=== PATIENT | male | born 1935 | race Caucasian/White ===

== ENCOUNTER 2025-06-12 13:31 | Emergency (ER) | payer MEDICARE, OTHER ==
[~2025-06-12] VITALS: Ht 175.3 cm; Wt 74.4 kg
[2025-06-12] MEDS: IV NS 0.9% 500 ML BAG IV ONE (14:04)
[2025-06-12 14:24] LABS: PLATELET COUNT (AUTO) 268 K/uL (150-450); RED BLOOD CELL COUNT(AUTO) 4.64 MIL/uL (4.5-6.0); RED CELL DISTRIBUTION WIDTH 15.8 % (11.5-15.0); WHITE BLOOD COUNT (AUTO) 6.9 K/uL (4.3-11.0)
[2025-06-12 14:26] LABS: CALCIUM, SERUM 8.7 mg/dL (8.5-10.1); CREATININE 1.7 mg/dL (0.6-1.3); SODIUM SERUM 139 mmol/L (136-145); UREA NITROGEN, BLOOD 22 mg/dL (7-18)
[2025-06-12 14:32] LABS: ASPARTATE AMINOTRANSFERASE 12 U/L (15-37); INR 1.0 (0.91-1.10); TOTAL PROTEIN, SERUM 7.7 g/dL (6.4-8.2)
[2025-06-12 17:02] VITALS: BP 132/78; TEMP 98.3; O2SAT 97
== END 2025-06-12 17:03 | disposition home or self-care (01) ==
LOC: ER 13:36
DX: G45.9 Transient cerebral ischemic attack, unspecified (principal); F03.90 Unspecified dementia, unspecified severity, without behavioral disturbance, psychotic disturbance, mood disturbance, and anxiety; R07.9 Chest pain, unspecified
CPT/HCPCS: 99285; 70450; 71045; 93005; 85025; 80048; 80076; 36415; 84443; 84484 ×2; 85730; J7040

== ENCOUNTER 2025-10-04 15:53 | Inpatient (IN) | payer MEDICARE, OTHER ==
[2025-10-04] VITALS (11 sets, daily range): BP systolic 81–122; BP diastolic 56–89; TEMP 97.7; O2SAT 92–100
[~2025-10-04] VITALS: Ht 162.6 cm; Wt 76.2 kg
[2025-10-04] MEDS ORDERED: OLANZAPINE 10 MG VIAL IM ONE (16:23)
[2025-10-04] MEDS: IPRATROPIUM NEB FS 0.5 MG/2.5 ML AMPUL.NEB NEB ONE (16:30)
[2025-10-04] MEDS: ALBUTEROL FS 2.5 MG/3 ML VIAL.NEB NEB ONE (16:30)
[2025-10-04 16:33] LABS: PLATELET COUNT (AUTO) 302 K/uL (150-450); RED BLOOD CELL COUNT(AUTO) 4.54 MIL/uL (4.5-6.0); RED CELL DISTRIBUTION WIDTH 17.0 % (11.5-15.0); WHITE BLOOD COUNT (AUTO) 10.0 K/uL (4.3-11.0)
[2025-10-04] MEDS: OLANZAPINE 10 MG VIAL IM ONE (16:35)
[2025-10-04 16:43] LABS: CALCIUM, SERUM 8.7 mg/dL (8.5-10.1); CREATININE 1.7 mg/dL (0.6-1.3); SODIUM SERUM 135 mmol/L (136-145); UREA NITROGEN, BLOOD 30 mg/dL (7-18)
[2025-10-04 16:58] LABS: NT-PRO BNP 15802 pg/mL (0-125)
[2025-10-04] MEDS ORDERED: FUROSEMIDE 40 MG/4 ML VIAL ONE (17:17)
[2025-10-04] MEDS: FUROSEMIDE 40 MG/4 ML VIAL IV ONE (17:28)
[2025-10-04] MEDS: CEFTRIAXONE 1 G in IV D5W 50 ML IV ONE (17:29)
[2025-10-04] MEDS ORDERED: ALBUTEROL FS 2.5 MG/3 ML VIAL.NEB ONE (17:39)
[2025-10-04] MEDS ORDERED: IPRATROPIUM NEB FS 0.5 MG/2.5 ML AMPUL.NEB ONE (17:39)
[2025-10-04] MEDS: AZITHROMYCIN 500 MG in IV D5W 250 ML IV ONE (17:59)
[2025-10-04] MEDS ORDERED: MAG HYDROX/AL HYDROX/SIMETH 30 ML UDC PO PRN (18:30)
[2025-10-04] MEDS ORDERED: IPRATROPIUM NEB FS 0.5 MG/2.5 ML AMPUL.NEB NEB PRN (18:30)
[2025-10-04] MEDS ORDERED: ONDANSETRON HCL/PF 4 MG/2 ML VIAL IVP PRN (18:30)
[2025-10-04] MEDS ORDERED: MAGNESIUM HYDROXIDE 30 ML UDC PO PRN (18:30)
[2025-10-04] MEDS ORDERED: ALBUTEROL FS 2.5 MG/3 ML VIAL.NEB NEB PRN (18:30)
[2025-10-04] MEDS ORDERED: Z GUARD REMEDY 4 OZ OINT TP PRN (18:30)
[2025-10-04 19:09] LABS: ABG BASE EXCESS -9.3 mmol/L (-2.0-3.0); ABG OXYGEN SATURATION 95.1 % (94.0-98.0); ABG PCO2 56.2 mmHg (35.0-48.0); ABG PH 7.166 (7.350-7.450); ABG PO2 95.2 mmHg (83.0-108.0); ABG TOTAL HEMOGLOBIN 15.5 G/dL (13.5-17.5); SET RATE, BG 20.0; SITE, ABG RIGHT RADIAL
[2025-10-04] MEDS ORDERED: MEMA10TA PO (19:14)
[2025-10-04] MEDS: PANTOPRAZOLE 40 MG VIAL IV SCH (20:45)
[2025-10-04] MEDS: DOXYCYCLINE 100 MG in IV D5W 100 ML IV SCH (21:09)
[2025-10-04] MEDS: IV NS 0.9% 250 ML IV PRN (21:09)
[2025-10-04 21:30] LABS: ABG BASE EXCESS -4.8 mmol/L (-2.0-3.0); ABG OXYGEN SATURATION 94.0 % (94.0-98.0); ABG PCO2 35.4 mmHg (35.0-48.0); ABG PH 7.364 (7.350-7.450); ABG PO2 74.0 mmHg (83.0-108.0); ABG TOTAL HEMOGLOBIN 15.0 G/dL (13.5-17.5); SET RATE, BG 20.0; SITE, ABG LEFT RADIAL
[2025-10-04] MEDS: NOREPINEPHRINE 8 MG in IV NS 0.9% 242 ML IV PRN (21:42)
[2025-10-04] MEDS: NOREPINEPHRINE 8MG/250ML RTU 250 ML IV ONE (21:43)
[2025-10-05] VITALS (42 sets, daily range): BP systolic 82–139; BP diastolic 56–112; TEMP 97.8–98.4; O2SAT 87–100
[2025-10-05 04:31] LABS: PLATELET COUNT (AUTO) 244 K/uL (150-450); RED BLOOD CELL COUNT(AUTO) 4.25 MIL/uL (4.5-6.0); RED CELL DISTRIBUTION WIDTH 16.1 % (11.5-15.0); WHITE BLOOD COUNT (AUTO) 17.1 K/uL (4.3-11.0)
[2025-10-05 04:43] LABS: CALCIUM, SERUM 8.3 mg/dL (8.5-10.1); CREATININE 2.3 mg/dL (0.6-1.3); PHOSPHORUS 4.2 mg/dL (2.5-4.9); SODIUM SERUM 138.0 mmol/L (136-145); UREA NITROGEN, BLOOD 36.0 mg/dL (7-18)
[2025-10-05 04:45] LABS: LDL 108.0 mg/dL (0-99)
[2025-10-05] MEDS ORDERED: LORAZEPAM INJ 2 MG/ML VIAL IV PRN (08:00)
[2025-10-05] MEDS ORDERED: FUROSEMIDE 40 MG/4 ML VIAL IV SCH (09:00)
[2025-10-05] MEDS: BUMETANIDE INJ 8 MG in IV NS 0.9% 48 ML IV ONE (09:21)
[2025-10-05 14:52] LABS: ABG BASE EXCESS 3.1 mmol/L (-2.0-3.0); ABG OXYGEN SATURATION 88.9 % (94.0-98.0); ABG PCO2 37.5 mmHg (35.0-48.0); ABG PH 7.470 (7.350-7.450); ABG PO2 54.9 mmHg (83.0-108.0); ABG TOTAL HEMOGLOBIN 14.3 G/dL (13.5-17.5); FLOW, BLOOD GAS 6.00 L/min (0.00-30.00); FRACTIONATED INSPIRED OXYGEN 44.0 %; SITE, ABG LEFT RADIAL
[2025-10-05] MEDS: CEFTRIAXONE 1 G in IV D5W 50 ML IV SCH (16:36)
[2025-10-06] VITALS (18 sets, daily range): BP systolic 92–139; BP diastolic 57–92; TEMP 97.9–98.4; O2SAT 91–98
[2025-10-06 04:46] LABS: PLATELET COUNT (AUTO) 262 K/uL (150-450); RED BLOOD CELL COUNT(AUTO) 4.33 MIL/uL (4.5-6.0); RED CELL DISTRIBUTION WIDTH 15.8 % (11.5-15.0); WHITE BLOOD COUNT (AUTO) 17.2 K/uL (4.3-11.0)
[2025-10-06 05:07] LABS: ASPARTATE AMINOTRANSFERASE 32.0 U/L (15-37); CALCIUM, SERUM 8.1 mg/dL (8.5-10.1); CREATININE 2.5 mg/dL (0.6-1.3); PHOSPHORUS 4.2 mg/dL (2.5-4.9); SODIUM SERUM 142.0 mmol/L (136-145); TOTAL PROTEIN, SERUM 7.5 g/dL (6.4-8.2); UREA NITROGEN, BLOOD 48.0 mg/dL (7-18)
[2025-10-06 05:09] LABS: CREATINE KINASE, TOTAL 554.0 U/L (39-308)
[2025-10-06] MEDS ORDERED: Magnesium 1GM/D5W 100ML PREMIX 100 ML IV SCH (09:30)
[2025-10-06] MEDS: POTASSIUM CHLORIDE 20 MEQ POWDER PACKET PO ONE (09:35)
[2025-10-06] MEDS: POTASSIUM CL. PREMIX PERIPHER. 50 ML IV SCH (10:04)
[2025-10-06 15:07] LABS: *SPE A/G RATIO 1.0 (0.7-1.7); *SPE ALBUMIN 3.3 g/dL (2.9-4.4); *SPE ALPHA-1-GLOBULIN 0.3 g/dL (0.0-0.4); *SPE ALPHA-2-GLOBULIN 1.0 g/dL (0.4-1.0); *SPE BETA GLOBULIN 1.1 g/dL (0.7-1.3); *SPE GLOBULIN, TOTAL 3.2 g/dL (2.2-3.9); *SPE M-SPIKE Not Observed g/dL (Not Observed); *SPE PROTEIN TOTAL 6.5 g/dL (6.0-8.5); *SPEGAMMA GLOBULIN 0.9 g/dL (0.4-1.8)
[2025-10-07] VITALS (7 sets, daily range): BP systolic 120–150; BP diastolic 62–90; TEMP 97.6–98.1; O2SAT 92–97
[2025-10-07 05:11] LABS: PTH, INTACT 137 pg/mL (15-65)
[2025-10-07 08:11] LABS: ASPARTATE AMINOTRANSFERASE 33.0 U/L (15-37); CALCIUM, SERUM 7.7 mg/dL (8.5-10.1); CREATININE 2.3 mg/dL (0.6-1.3); PHOSPHORUS 3.7 mg/dL (2.5-4.9); PLATELET COUNT (AUTO) 274 K/uL (150-450); RED BLOOD CELL COUNT(AUTO) 4.53 MIL/uL (4.5-6.0); RED CELL DISTRIBUTION WIDTH 15.5 % (11.5-15.0); SODIUM SERUM 140.0 mmol/L (136-145); TOTAL PROTEIN, SERUM 7.3 g/dL (6.4-8.2); UREA NITROGEN, BLOOD 52.0 mg/dL (7-18); WHITE BLOOD COUNT (AUTO) 13.6 K/uL (4.3-11.0)
[2025-10-07] MEDS: MEMANTINE HCL 5 MG TABLET PO SCH (09:47)
[2025-10-07] MEDS: POTASSIUM CHLORIDE 10 MEQ TABLET.SA PO ONE (12:41)
[2025-10-07] MEDS: CEFTRIAXONE 2 G in IV D5W 100 ML IV SCH (17:48)
[2025-10-07] MEDS: ACETAMINOPHEN 325 MG TABLET PO PRN (20:59)
[2025-10-08] VITALS: BP 131/71; TEMP 97.9; O2SAT 98
[2025-10-08 04:00] VITALS: BP 133/79; TEMP 97.7; O2SAT 98
[2025-10-08 07:49] LABS: PLATELET COUNT (AUTO) 234 K/uL (150-450); RED BLOOD CELL COUNT(AUTO) 5.05 MIL/uL (4.5-6.0); RED CELL DISTRIBUTION WIDTH 16.6 % (11.5-15.0); WHITE BLOOD COUNT (AUTO) 9.0 K/uL (4.3-11.0)
[2025-10-08 07:58] LABS: CALCIUM, SERUM 8.1 mg/dL (8.5-10.1); CREATININE 1.8 mg/dL (0.6-1.3); SODIUM SERUM 138.0 mmol/L (136-145); UREA NITROGEN, BLOOD 42.0 mg/dL (7-18)
[2025-10-08 08:00] VITALS: BP 131/71; TEMP 97.9; O2SAT 98
[2025-10-08] MEDS: PANTOPRAZOLE 40 MG TABLET.DR PO SCH (10:37)
[2025-10-08] MEDS: POTASSIUM CHLORIDE 20 MEQ TAB.PRT.SR PO SCH (10:37)
[2025-10-08] MEDS: FUROSEMIDE 100 MG/10 ML VIAL IV SCH (10:37)
[2025-10-08 12:00] VITALS: BP 121/90; TEMP 97.2; O2SAT 96
[2025-10-08 16:00] VITALS: BP 118/80; TEMP 97.3; O2SAT 95
[2025-10-08 20:51] VITALS: BP 106/73; TEMP 97.5; O2SAT 96
[2025-10-08] MEDS: DOXYCYCLINE HYCLATE (100 MG) 100 MG TABLET PO SCH (21:11)
[2025-10-09 00:10] VITALS: BP 112/59; TEMP 97.8; O2SAT 98
[2025-10-09 05:30] VITALS: BP 104/71; TEMP 98.1; O2SAT 98
[2025-10-09 07:22] LABS: PLATELET COUNT (AUTO) 274 K/uL (150-450); RED BLOOD CELL COUNT(AUTO) 4.98 MIL/uL (4.5-6.0); RED CELL DISTRIBUTION WIDTH 16.0 % (11.5-15.0); WHITE BLOOD COUNT (AUTO) 9.9 K/uL (4.3-11.0)
[2025-10-09 07:26] LABS: ASPARTATE AMINOTRANSFERASE 16.0 U/L (15-37); CALCIUM, SERUM 8.2 mg/dL (8.5-10.1); CREATININE 2.2 mg/dL (0.6-1.3); PHOSPHORUS 4.5 mg/dL (2.5-4.9); SODIUM SERUM 140.0 mmol/L (136-145); TOTAL PROTEIN, SERUM 7.6 g/dL (6.4-8.2); UREA NITROGEN, BLOOD 47.0 mg/dL (7-18)
[2025-10-09 08:00] VITALS: BP 99/80; TEMP 98.6; O2SAT 99
[2025-10-09 09:10] LABS: *SPE A/G RATIO 1.0 (0.7-1.7); *SPE ALBUMIN 3.4 g/dL (2.9-4.4); *SPE ALPHA-1-GLOBULIN 0.3 g/dL (0.0-0.4); *SPE ALPHA-2-GLOBULIN 1.1 g/dL (0.4-1.0); *SPE BETA GLOBULIN 1.2 g/dL (0.7-1.3); *SPE GLOBULIN, TOTAL 3.5 g/dL (2.2-3.9); *SPE M-SPIKE Not Observed g/dL (Not Observed); *SPE PROTEIN TOTAL 6.9 g/dL (6.0-8.5); *SPEGAMMA GLOBULIN 1.0 g/dL (0.4-1.8)
[2025-10-09] MEDS ORDERED: IV D5/ 0.9% NACL 1,000 ML IV PRN (09:30)
[2025-10-09 12:00] VITALS: BP 115/63; TEMP 97.7; O2SAT 96
[2025-10-09] MEDS: ENSURE ENLIVE CHOC 237 ML CAN PO SCH (15:49)
[2025-10-09 16:00] VITALS: BP 110/94; TEMP 97.7; O2SAT 97
[2025-10-09] MEDS ORDERED: FURO-144 PO (16:31)
== END 2025-10-09 19:10 | disposition home health service (06) | DRG 291 ==
LOC: ER 16:04 → ICU 19:11 → TELE1 10-06 17:11
PROVIDERS: ADMIT Nurse Practitioner Acute Care; ATTEND Nurse Practitioner Acute Care
PROC: 5A09357 Assistance with Respiratory Ventilation, Less than 24 Consecutive Hours, Continuous Positive Airway Pressure (ICD-10-PCS; principal; 2025-10-04)
DX: I13.0 Hypertensive heart and chronic kidney disease with heart failure and stage 1 through stage 4 chronic kidney disease, or unspecified chronic kidney disease (principal); G92.8 Other toxic encephalopathy; J15.9 Unspecified bacterial pneumonia; I50.23 Acute on chronic systolic (congestive) heart failure; J96.01 Acute respiratory failure with hypoxia; N17.0 Acute kidney failure with tubular necrosis; J96.02 Acute respiratory failure with hypercapnia; J44.0 Chronic obstructive pulmonary disease with (acute) lower respiratory infection; J90 Pleural effusion, not elsewhere classified; N18.4 Chronic kidney disease, stage 4 (severe); G91.2 (Idiopathic) normal pressure hydrocephalus; G30.9 Alzheimer's disease, unspecified; I16.0 Hypertensive urgency; J44.1 Chronic obstructive pulmonary disease with (acute) exacerbation; E86.0 Dehydration; Z20.822 Contact with and (suspected) exposure to COVID-19; R73.9 Hyperglycemia, unspecified; Z87.891 Personal history of nicotine dependence; Z66 Do not resuscitate; F02.80 Dementia in other diseases classified elsewhere, unspecified severity, without behavioral disturbance, psychotic disturbance, mood disturbance, and anxiety; E87.6 Hypokalemia
CPT/HCPCS: 36415; 36600; 70450-TC; 71045-TC; 76770-TC; 80048-TC; 80053-TC; 80061-TC; 82550-TC; 82553; 82803-TC; 83735-TC; 83880; 83970; 84100-TC; 84155; 84165; 84484-TC; 85025-TC; 87081-TC; 92526; 92611; 93307-TC; 94799-TC; 97110-TC; 97112-TC; 97530-TC; 97535-TC; 99082-TC; A4223; G0378; J0456; J0696; J1938; J2470; J2919; J3480; J3490; J7050; J7060